=== PATIENT | male | born 1990 | race Caucasian/White ===

== ENCOUNTER 2016-05-04 10:20 | Emergency (ER) | payer SELFPAY ==
[2016-05-04 10:20] VITALS: BMI 25.0
[2016-05-04 10:30] VITALS: TEMP 98.5
[2016-05-04] MEDS ORDERED: LORAZEPAM 1 MG TAB PO ONE (10:31)
[2016-05-04] MEDS ORDERED: NS 1,000 ML IV ONE (10:31)
[2016-05-04 10:48] LABS: AUTOMATED BASOPHIL 0.7 % (0-2); AUTOMATED EOSINOPHIL 2.2 % (0-5); AUTOMATED LYMPH 18.9 % (17-44); AUTOMATED MONOCYTE 4.4 % (3-10); AUTOMATED NEUTROPHIL 73.8 % (45-76); MPV 7.7 fL (7.4-10.4)
--- NOTE | 2016-05-04 10:56 | EDPRACDOC ---
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 PT HAS A PMH OF SEIZURES. STATES HE TAKES KEPPRA FOR THESE, STATES HE DID NOT TAKE A DOSE LAST NIGHT AND NO LONGER HAS ANY DUE TO FINANCIAL ISSUES. 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 BLS IV Yes ED Past Medical History - History Reviewed Yes Nurses notes reviewed and agree except as marked - Patient Medical History Neurological History: Reports: Seizures Respiratory History: Reports: Asthma Psychological History: Denies: Depression - Social Medical History Smoking Status: Heavy tobacco smoker (5 or more cigarettes/day or daily pipe/ cigar) EDM Review of Systems - Review of Systems ROS Negative Except as Marked: Yes All systems reviewed and were negative except as marked - Physical Exam Constitutional: Alert Oriented to: Time, Person, Place Last recorded Vital Signs: Last Vital Signs Temp 98.5 F 05/04/16 10:24 Pulse 88 05/04/16 10:24 Resp 18 05/04/16 10:24 BP 124/69 05/04/16 10:24 Pulse Ox 94 05/04/16 10:24 Oxygen Pulse Oxygen Saturation 94 O2 Device Oxygen Flow Rate Fraction of Inspired Oxygen ( FIO2) - HEENT Head: Swelling (RIGHT EYE), Tender (RIGHT EYE) Eye Exam: Normal (PERRL, EOMI, Sclera white) Oropharynx: Normal (Pharynx:Moist without exudate,Gums-no swelling) Nose: No Symptoms Reported (septum midline) Neck: Normal (FROM, trachea at midline) - Respiratory/Cardiovascular Respiratory: Normal - CTA (BBS clear to auscultation without adventitious sounds ) Cardiovascular: Normal (RRR without murmur, gallop or rub) - GI Auscultation: Normal (NABS) Palpation: Normal (Soft,No rebound or guarding, non distended) Tenderness: Non tender Mak's Sign: Negative Rectal Exam: Deferred - Musculoskeletal Back: Normal (Non-Tender) Extremities: Normal (Normal tone, Pulses 2+ No cyanosis or edema, FROM) - Integumentary Skin: Normal, Warm, Dry Lymphatics: Normal (no adenopathy) - Neurologic Memory Impaired: Normal Motor Function: Normal (Normal tone, Pulses 2+ No cyanosis or edema, FROM) Cranial Nerve: Normal (CN II-X11 intact sensation, strength 5/5) Cerebellar: Normal Mood Description: Normal Perception: Normal - Differential Diagnosis Seizure - Re-evaluation Re-evaluation 1 Re-evaluation Time: 11:44 (NO ACUTE DISTRESS NOTED. VSS) - Results 05/04/16 10:43 05/04/16 10:43 WBC 7.6 xk/uL (3.8-10.8) 05/04/16 10:43 RBC 5.14 xM/uL (4.70-6.10) 05/04/16 10:43 Hgb 16.7 g/dL (14.0-18.0) 05/04/16 10:43 Hct 47.8 % (42-52) 05/04/16 10:43 MCV 93 fL (80-94) 05/04/16 10:43 MCH 32.5 pg (27-32) H 05/04/16 10:43 MCHC 35.0 g/dl (33-36) 05/04/16 10:43 RDW 13.4 % (11.5-14.5) 05/04/16 10:43 Plt Count 199 xk/uL (130-400) 05/04/16 10:43 MPV 7.7 fL (7.4-10.4) 05/04/16 10:43 Neut % (Auto) 73.8 % (45-76) 05/04/16 10:43 Lymph % (Auto) 18.9 % (17-44) 05/04/16 10:43 [place] % (Auto) 4.4 % (3-10) 05/04/16 10:43 Eos % (Auto) 2.2 % (0-5) 05/04/16 10:43 Baso % (Auto) 0.7 % (0-2) 05/04/16 10:43 Absolute Neuts (auto) 5.55 xk/uL (1.7-8.2) 05/04/16 10:43 Absolute Lymphs (auto) 1.37 xk/uL (0.65-4.75) 05/04/16 10:43 Lab Results 05/04/16 10:43 WBC 7.6 RBC 5.14 Hgb 16.7 Hct 47.8 MCV 93 MCH 32.5 H MCHC 35.0 RDW 13.4 Plt Count 199 MPV 7.7 Neut % (Auto) 73.8 Lymph % (Auto) 18.9 [place] % (Auto) 4.4 Eos % (Auto) 2.2 Baso % (Auto) 0.7 Absolute Neuts (auto) 5.55 Absolute Lymphs (auto) 1.37 - EKG EKG #1 EKG Time: 10:28 -: Yes EKG interpreted by me Rate: bpm: 77 [place]: Normal Rhythm: NSR Block: None Hypertrophy: None ST: Normal Decision Time to Discharge: 11:45 - Departure Disposition: Home Condition: Stable Final Diagnosis: Seizure Instructions: Seizures Education/Counseling Given To: Patient Education/Counseling Given Regarding: Diagnosis, Treatment, Prognosis, Follow Up Referrals: Jean Claude Aquino II, MD [Staff Physician] - [facility] [NonStaff] - One Week Prescriptions: Levetiracetam [Keppra] 1,000 mg PO BID #60 tablet Additional Instructions: TAKE KEPPRA PRESCRIBED. YOU MAY WISH TO TRY [facility] TO GET YOUR KEPPRA.
[2016-05-04 11:08] LABS: BLOOD UREA NITROGEN 13 MG/DL (9-20); CALCIUM 9.8 MG/DL (8.4-10.2); CALCULATED OSMOLALITY 270 MOs/Kg (270-290); CHLORIDE 105 mEq/L (98-107); GLUCOSE 89 MG/DL (70-99); SODIUM LEVEL 141 mEq/L (137-146); TOTAL PROTEIN 7.8 G/DL (6.3-8.2)
--- NOTE | 2016-05-04 11:19 | DIRPT ---
CLINICAL DATA: Seizure today, struck forehead on something, trauma EXAM: CT HEAD WITHOUT CONTRAST TECHNIQUE: Contiguous axial images were obtained from the base of the skull through the vertex without intravenous contrast. COMPARISON: 12/07/2015 FINDINGS: Normal ventricular morphology. No midline shift or mass effect. Normal appearance of brain parenchyma. No intracranial hemorrhage, mass lesion, or acute infarction. Visualized paranasal sinuses and mastoid air cells clear. Bones unremarkable. IMPRESSION: Normal exam, unchanged. Electronically Signed By: Patel Singh M.D. On: 05/04/2016 11:16
[2016-05-04 11:31] LABS: LEUKOCYTES/URINE NEG (NEGATIVE); NITRITE/URINE NEG (NEGATIVE); RBC/URINE 0-2 (0-2); URINE OCCULT BLOOD NEG (NEG/TRACE); WBC/URINE 0-2 (0-2)
[2016-05-04 12:11] VITALS: BP 114/70; PULSE 74
== END 2016-05-04 12:08 | disposition home or self-care (01) ==
LOC: ED 10:20
DX: R56.9 Unspecified convulsions (principal)
CPT/HCPCS: 36415; 70450; 80053; 81001; 85025; 93005; 96365; 99284; J1953; J3490